=== PATIENT | female | born 1985 | race African-American/Black ===

== ENCOUNTER 2021-10-19 01:19 | Outpatient (CLI) | payer OTHER | END 2021-10-19 13:58 | disposition home or self-care (01) | LOC: LAB 01:19 | PROVIDERS: ATTEND Obstetrics & Gynecology | DX: Z20.828 Contact with and (suspected) exposure to other viral communicable diseases (principal); Z20.818 Contact with and (suspected) exposure to other bacterial communicable diseases ==